=== PATIENT | female | born 1960 | race Caucasian/White ===

== ENCOUNTER 2017-05-22 11:42 | Emergency (ER) | payer OTHER ==
[2017-05-22] MEDS ORDERED: IV NORMAL SALINE 1,000ML 1,000 ML IV SCH (11:53)
[2017-05-22] MEDS ORDERED: MORPHINE SULFATE 2 MG/ML DISP.SYRIN. IV/SQ PRN (12:00)
--- NOTE | 2017-05-22 12:01 | ED.ADGEN ---
Adult General HPI HPI Patient is a 56 year old female with right flank pain Right flank pain for two days. Also some right lower pain. There is some pain to the back. No N/V/D. Did have some chills. No one else is sick. No chest pain, no cough. Seen at [facility] and referred here. Took some OTC pain meds. Currently the pain is moderate. No diffuse muscle pain. Review of Systems Review of Systems Constitutional: Did have some chills Eyes: Denies change in visual acuity, redness, or eye pain HENT: Denies nasal congestion or sore throat Respiratory: Denies cough or shortness of breath Cardiovascular: No chest pain GI: HPI : Denies dysuria or hematuria Musculoskeletal: right flank pain Integument: Denies rash or skin lesions Neurologic: Denies headache, focal weakness or sensory changes Endocrine: Denies polyuria or polydipsia All other systems were reviewed and found to be within normal limits, except as documented in this note. Current Medications Current Medications Current Medications Medications (Trade) Dose Ordered Sig/Conor Start Time Stop Time Status Last Admin Dose Admin Morphine Sulfate (Morphine 2mg Syringe) 2 mg PRN Q15MIN PRN 05/22/17 12:00 05/22/17 15:12 DC Piperacillin Sod/ Tazobactam Sod (Zosyn) 3.375 gm STK-MED ONCE 05/22/17 13:19 05/22/17 13:20 DC Piperacillin Sod/ Tazobactam Sod 3.375 gm/Sodium Chloride 50 ml @ 100 mls/hr 1X ONCE 05/22/17 12:45 05/22/17 13:14 DC 05/22/17 12:45 100 MLS/HR Sodium Chloride 50 ml @ As Directed STK-MED ONCE 05/22/17 13:19 05/22/17 13:20 DC Allergies Allergies Allergies Coded Allergies Type Severity Reaction Last Updated Verified No Known Drug Allergies 05/22/17 No Physical Exam Physical Exam Constitutional: Well developed, well nourished, no acute distress, non-toxic appearance. HENT: Normocephalic, atraumatic, Eyes: PERRLA, EOMI, conjunctiva normal, no discharge. Neck: Normal range of motion, no tenderness, supple, no stridor. Cardiovascular:Heart rate regular rhythm, no murmur Lungs & Thorax: Bilateral breath sounds clear to auscultati Abdomen: Bowel sounds normal,mild left flank tenderness, no point RLQ tenderness. Mild epigastric pain. Skin: Warm, dry, no erythema, no rash. Back: No tenderness, no CVA tenderness. Extremities: No tenderness, no cyanosis, no clubbing, ROM intact, no edema. Neurologic: Alert and oriented X 3, normal motor function, normal sensory function, no focal deficits noted. Psychologic: Affect normal, judgement normal, mood normal. Current Patient Data Vital Signs Vital Signs Date Time Temp Pulse Resp B/P (MAP) Pulse Ox O2 Delivery O2 Flow Rate FiO2 05/22/17 14:15 97.6 78 16 131/76 (94) 95 Room Air Lab Results Laboratory Tests Test 05/22/17 11:59 White Blood Count 12.5 x10^3/uL (4.0-11.0) H Red Blood Count 4.81 x10^6/uL (3.50-5.40) Hemoglobin 15.3 g/dL (12.0-15.5) Hematocrit 44.9 % (36.0-47.0) Mean Corpuscular Volume 93 fL (79-100) Mean Corpuscular Hemoglobin 32 pg (25-35) Mean Corpuscular Hemoglobin Concent 34 g/dL (31-37) Red Cell Distribution Width 13.4 % (11.5-14.5) Platelet Count 333 x10^3/uL (140-400) Neutrophils (%) (Auto) 72 % (31-73) Lymphocytes (%) (Auto) 16 % (24-48) L Monocytes (%) (Auto) 8 % (0-9) Eosinophils (%) (Auto) 3 % (0-3) Basophils (%) (Auto) 1 % (0-3) Neutrophils # (Auto) 9.0 x10^3uL (1.8-7.7) H Lymphocytes # (Auto) 2.0 x10^3/uL (1.0-4.8) Monocytes # (Auto) 1.0 x10^3/uL (0.0-1.1) Eosinophils # (Auto) 0.4 x10^3/uL (0.0-0.7) Basophils # (Auto) 0.1 x10^3/uL (0.0-0.2) Urine Collection Type Unknown Urine Color [place] Urine Clarity Clear Urine pH 5.0 Urine Specific [place] 1.025 Urine Protein Neg (NEG-TRACE) Urine Glucose (UA) Neg mg/dL (NEG) Urine Ketones (Stick) 15 mg/dL (NEG) Urine Blood Neg (NEG) Urine Nitrite Neg (NEG) Urine Bilirubin Large (NEG) Urine Urobilinogen Dipstick 1 mg/dL (0.2 mg/dL) Urine Leukocyte Esterase Small (NEG) Urine RBC Rare /HPF (0-2) Urine WBC 11-20 /HPF (0-4) Urine Squamous Epithelial Cells Mod /LPF Urine Transitional Epithelial Cells Occ /LPF Urine Amorphous Sediment Present /HPF Urine Bacteria Few /HPF (0-FEW) Urine Mucus Mod /LPF Sodium Level 143 mmol/L (136-145) Potassium Level 3.8 mmol/L (3.5-5.1) Chloride Level 106 mmol/L (98-107) Carbon Dioxide Level 26 mmol/L (21-32) Anion Gap 11 (6-14) Blood Urea Nitrogen 9 mg/dL (7-20) Creatinine 0.9 mg/dL (0.6-1.0) Estimated GFR (Cockcroft-Gault) 64.8 BUN/Creatinine Ratio 10 (6-20) Glucose Level 112 mg/dL (70-99) H Calcium Level 9.6 mg/dL (8.5-10.1) Total Bilirubin 4.2 mg/dL (0.2-1.0) H Aspartate Amino Transferase (AST) 561 U/L (15-37) H Alanine Aminotransferase (ALT) 758 U/L (14-59) H Alkaline Phosphatase 310 U/L (46-116) H Total Protein 7.7 g/dL (6.4-8.2) Albumin 4.0 g/dL (3.4-5.0) Albumin/Globulin Ratio 1.1 (1.0-1.7) Lipase 37918 U/L (73-393) H EKG EKG [] Radiology/Procedures Radiology/Procedures PROCEDURE: CT ABDOMEN PELVIS WO CONTRAST CT abdomen and pelvis without contrast 05/22/2017 Clinical indication: Right lower quadrant abdominal pain. Jal comparison: None. Technique: Multiple CT images of the abdomen and pelvis were obtained without contrast. PQRS Compliance Statement: One or more of the following individualized dose reduction techniques were utilized for this examination: 1. Automated exposure control 2. Adjustment of the mA and/or kV according to patient size 3. Use of iterative reconstruction technique Findings: Heart size visualized lung bases are unremarkable. Evaluation of the solid abdominopelvic viscera, lymphadenopathy and vasculature is limited in the absence of intravenous contrast. Unenhanced contours of the liver, spleen, adrenal glands, pancreas and right kidney are grossly unremarkable. There is a small 1 cm left inferior pole renal cyst. No hydronephrosis. No nephrolithiasis. Gallbladder is mildly dilated with cholelithiasis. No intra or extrahepatic bile or ductal dilatation. Abdominal aorta is normal in caliber. Small and large bowel loops are normal in caliber without obstruction. No abdominal free fluid. Appendix is normal in appearance. No pneumoperitoneum. Urinary bladder is decompressed. Uterus is present though incompletely evaluated by CT. No iliac or inguinal lymphadenopathy. No pelvic free fluid. There is bilateral L5 spondylolysis and grade 2 and shows thesis L5 on S1. Impression: 1. Mildly dilated gallbladder with cholelithiasis. Findings are equivocal for acute cholecystitis. 2. No nephrolithiasis or hydronephrosis. DICTATED AND SIGNED BY: HARESH EARLY MD DATE: 05/22/17 1222 CC: KIMBERLY SULLIVAN MD; JESÚS STONE ~ [] Course & Med Decision Making Course & Med Decision Making Pertinent Labs and Imaging studies reviewed. (See chart for details) Greatly elevated Lipase and moderately elevated LFTs. Patient has what appears to be gallstone pancreatitis. This will require transfer to [facility]. This condition exceed the services offered at this hospital. Patient feels much improved and looks rather well -- better than her labs would suggest. I will dose with antibiotics and arrange for transfer for a direct admit to [facility], 1245: D/W Dr. Elliott who accepts patient for a direct admit at [facility]; we will arrange transportation. Transferred to [facility] in stable condition. Dx: gallstone pancreatitis. Final Impression Final Impression []Gallstone pancreatitis Problems: Dragon Disclaimer Dragon Disclaimer This electronic medical record was generated, in whole or in part, using a voice recognition dictation system. KIMBERLY SULLIVAN MD May 22, 2017 12:01
[2017-05-22 12:10] LABS: BASO # 0.1 x10^3/uL (0.0-0.2); BASO % 1 % (0-3); EOS # 0.4 x10^3/uL (0.0-0.7); EOS % 3 % (0-3); HEMATOCRIT 44.9 % (36.0-47.0); HEMOGLOBIN 15.3 g/dL (12.0-15.5); LYMPH % 16 % (24-48); MEAN CORPUSCULAR HEMOGLOBIN 32 pg (25-35); MEAN CORPUSCULAR HGB CONC 34 g/dL (31-37); MEAN CORPUSCULAR VOLUME 93 fL (79-100); MONO % 8 % (0-9); NEUT % 72 % (31-73); PLATELET COUNT 333 x10^3/uL (140-400); RED BLOOD COUNT 4.81 x10^6/uL (3.50-5.40); RED CELL DISTRIBUTION WIDTH 13.4 % (11.5-14.5); WHITE BLOOD COUNT 12.5 x10^3/uL (4.0-11.0)
[2017-05-22 12:18] LABS: BACTERIA,URINE FEW /HPF (0-FEW); BILIRUBIN,URINE LARGE (NEG); CLARITY,URINE CLEAR; COLOR,URINE AMBER; GLUCOSE,URINE NEG (NEG); NITRITE,URINE NEG (NEG); RBC,URINE RARE /HPF (0-2); SQUAMOUS EPITHELIAL CELL,UR MOD /LPF; UROBILINOGEN,URINE 1 mg/dL (0.2 mg/dL)
[2017-05-22 12:19] LABS: AMORPHOUS SEDIMENT,UR PRESENT /HPF
[2017-05-22 12:23] LABS: ALBUMIN/GLOBULIN RATIO 1.1 (1.0-1.7); CALCIUM 9.6 mg/dL (8.5-10.1); CREATININE 0.9 mg/dL (0.6-1.0); GFR 64.8; POTASSIUM 3.8 mmol/L (3.5-5.1); TOTAL BILIRUBIN 4.2 mg/dL (0.2-1.0); TOTAL PROTEIN 7.7 g/dL (6.4-8.2)
--- NOTE | 2017-05-22 12:31 | RAD ---
CT abdomen and pelvis without contrast 05/22/2017 Clinical indication: Right lower quadrant abdominal pain. Annette comparison: None. Technique: Multiple CT images of the abdomen and pelvis were obtained without contrast. PQRS Compliance Statement: One or more of the following individualized dose reduction techniques were utilized for this examination: 1. Automated exposure control 2. Adjustment of the mA and/or kV according to patient size 3. Use of iterative reconstruction technique Findings: Heart size visualized lung bases are unremarkable. Evaluation of the solid abdominopelvic viscera, lymphadenopathy and vasculature is limited in the absence of intravenous contrast. Unenhanced contours of the liver, spleen, adrenal glands, pancreas and right kidney are grossly unremarkable. There is a small 1 cm left inferior pole renal cyst. No hydronephrosis. No nephrolithiasis. Gallbladder is mildly dilated with cholelithiasis. No intra or extrahepatic bile or ductal dilatation. Abdominal aorta is normal in caliber. Small and large bowel loops are normal in caliber without obstruction. No abdominal free fluid. Appendix is normal in appearance. No pneumoperitoneum. Urinary bladder is decompressed. Uterus is present though incompletely evaluated by CT. No iliac or inguinal lymphadenopathy. No pelvic free fluid. There is bilateral L5 spondylolysis and grade 2 and shows thesis L5 on S1. Impression: 1. Mildly dilated gallbladder with cholelithiasis. Findings are equivocal for acute cholecystitis. 2. No nephrolithiasis or hydronephrosis.
[2017-05-22] MEDS ORDERED: PIPERACILLIN/TAZOBACTAM 3.375 GM in IV NORMAL SALINE 50ML 50 ML IV ONE (12:45)
[2017-05-22] MEDS ORDERED: IV NORMAL SALINE 50ML 50 ML ONE (13:19)
[2017-05-22] MEDS ORDERED: PIPERACILLIN/TAZOBACTAM 3.375 GM VIAL IV ONE (13:19)
[2017-05-22 14:15] VITALS: BP 131/76
== END 2017-05-22 14:30 | disposition short-term general hospital (02) ==
LOC: ER 11:42
DX: K85.10 Biliary acute pancreatitis without necrosis or infection (principal)
CPT/HCPCS: 36415; 74176; 80053; 81001; 83690; 85025; 87086; 96365; 96366; 99285; J2543; J7030

== ENCOUNTER → 2018-05-20 | Outpatient (CLI) | payer OTHER ==
--- NOTE | 2018-05-26 14:02 | RAD ---
DATE: 05/20/2018 1:30 PM EXAM: MAMMO [facility] SCREENING BILATERAL HISTORY: routine screening evaluation COMPARISON: Prior mammogram 11/10/2010 Bilateral CC and MLO views of the breasts were performed. Bilateral breast tomosynthesis was performed in CC and MLO projections. This study was interpreted with the benefit of Computerized Aided Detection (CAD ). Breast Density: The breast parenchyma shows scattered fibroglandular densities. Breast parenchyma level B. FINDINGS: Skin markers overlie the breasts. No suspicious masses, microcalcifications or architectural distortion is present to suggest malignancy in either breast. The visualized axillae are unremarkable. IMPRESSION: No mammographic evidence of malignancy. BI-RADS CATEGORY: 1 NEGATIVE RECOMMENDED FOLLOW-UP: 12M 12 MONTH FOLLOW-UP Annual screening mammography is recommended, unless clinically indicated sooner based on symptoms or change in physical exam. PQRS compliance statement: Patient information was entered into a reminder system with a target due date 05/21/2019 for the next mammogram. Mammography is a sensitive method for finding small breast cancers, but it does not detect them all and is not a substitute for careful clinical examination. A negative mammogram does not negate a clinically suspicious finding and should not result in delay in biopsying a clinically suspicious abnormality. "Our facility is accredited by the [employer] Mammography Program." RADHAD
== END | disposition home or self-care (01) ==
LOC: MAMMO 11:22
PROVIDERS: ATTEND Physician Assistant Medical
DX: Z12.31 Encounter for screening mammogram for malignant neoplasm of breast (principal)
CPT/HCPCS: 77063; 77067

== ENCOUNTER → 2019-05-17 | Outpatient (CLI) | payer OTHER ==
--- NOTE | 2019-05-17 17:28 | RAD ---
2 view study right hip and AP view of the pelvis Clinical indications: Right hip pain. FINDINGS: No acute fracture or dislocation or lytic process evident. No significant arthritic change is evident. IMPRESSION: No significant osseous abnormality of the right hip joint is seen. There is degenerative osteoarthritis with joint space narrowing and spurring of the symphysis pubis. In addition, there is a prominent exostosis involving the superior aspect of the sacrum. This may related to degenerative osteoarthritis and spurring of the lumbosacral junction. Previous CT study of the abdomen and pelvis dated May 22, 2017 demonstrated a grade 2 anterolisthesis of L5-S1 secondary to bilateral spondylolysis of L5 with prominent degenerative spurring of the anterior aspect of the L5-S1 disc space. Electronically signed by: Jon Miller MD (05/17/2019 5:26 PM) [id number]
== END | disposition home or self-care (01) ==
LOC: PMG 11:26
PROVIDERS: ATTEND Physician Assistant Medical
DX: M16.11 Unilateral primary osteoarthritis, right hip (principal); M25.851 Other specified joint disorders, right hip; M47.817 Spondylosis without myelopathy or radiculopathy, lumbosacral region; M46.07 Spinal enthesopathy, lumbosacral region
CPT/HCPCS: 73502

== ENCOUNTER → 2021-06-04 | Outpatient (CLI) | payer OTHER ==
--- NOTE | 2021-06-04 14:39 | RAD ---
EXAM: Lumbar spine, 5 views. HISTORY: Pain. COMPARISON: None. FINDINGS: 5 views of the lumbar spine are obtained. There is grade 1 anterolisthesis of L5 on S1, zina suring 12 mm. There are associated pars defects at this level. The posterior elements of L5 are conge nitally nonfused. There is 5 mm grade 1 anterolisthesis of L4 on L5. There is degenerative endplate r emodeling with disc space narrowing and facet arthropathy at L5-S1. There are cholecystectomy clips. IMPRESSION: 1. Grade 1 anterolisthesis with pars defects and advanced degenerative change at L5-S1. 2. Grade 1 anterolisthesis of L4 on L5. Electronically signed by: Lisa Laurent MD (06/04/2021 2:36 PM) [id number]
== END ==
LOC: RAD 12:30
PROVIDERS: ATTEND Physician Assistant Medical
DX: M47.27 Other spondylosis with radiculopathy, lumbosacral region (principal); M48.07 Spinal stenosis, lumbosacral region; M43.17 Spondylolisthesis, lumbosacral region; Z90.49 Acquired absence of other specified parts of digestive tract
CPT/HCPCS: 72110